=== PATIENT | male | born 1990 | race Caucasian/White ===

== ENCOUNTER 2020-01-19 14:16 | Emergency (ER) | payer OTHER ==
[2020-01-19 14:23] VITALS: BP 150/92
--- NOTE | 2020-01-19 14:38 | ED Physician Documentation ---
PD HPI UPPER EXT INJURY - Stated complaint Stated Complaint: R HAND LAC - Chief complaint Chief Complaint: Laceration - History obtained from History obtained from: Patient - History of Present Illness Location: Right, Finger (dorsal MCP of index finger) Type of injury: Laceration (madelaine was cleaning gutters and cut his hand on edge of sheet metal of the gutter. No numbness nor weakness.) Where injury occurred: Home Timing - onset: Today Timing - details: Abrupt onset (bled briskly initially. No numbness nor weakness of the finger.) Improved by: Rest Worsened by: Palpating. No: Moving Associated symptoms: No: Weakness, Numbness Review of Systems Neurologic: denies: Focal weakness, Numbness PD PAST MEDICAL HISTORY - Past Medical History Past Medical History: No - Allergies Allergies/Adverse Reactions: Allergies Allergy/AdvReac Type Severity Reaction Status Date / Time No Known Drug Allergies Allergy Verified 01/19/20 14:20 PD ED PE NORMAL - Vitals Vital signs reviewed: Yes - General General: Alert and oriented X 3, No acute distress, Well developed/nourished - Derm Derm: Normal color, Warm and dry - Extremities Extremities: Other (right index finger dorsal proximal MCP area with 1 cm laceration without FB nor active bleeding. Through skin only and does not involved deep structures. Strong extension of finger against resistance. It does open though with finger flexion and slight bleeding with that. So better with sutures. ) - Neuro Neuro: No motor deficit, No sensory deficit Results - Vitals Vitals: Vital Signs - 24 hr 01/19/20 14:20 Temperature 36.5 C Heart Rate 79 Respiratory 16 Rate Blood Pressure 150/92 H O2 Saturation 97 Oxygen O2 Source Room air Procedures - Laceration (location) right index finger dorsal MCP Length in cm: 1 Wound type: Linear, Into subcut fat, Clean Neurovascular status: Sensory intact, Motor intact, Vascular intact Tendon involvement: Tendon intact Anesthesia: Lidocaine 2% with epi Wound Preparation: Wound explored, To the base. No: FB identified Skin layer closure: Nylon, Interrupted, Size #-0 - enter number (4), Sutures - enter # (5) Other: Patient tolerated well, No complications, Neurovascular intact, Dressing applied, Tetanus UTD Complexity: Simple Departure - Departure Disposition: 01 Home, Self Care Clinical Impression: Hand laceration Qualifiers: Encounter type: initial encounter Foreign body presence: without foreign body Laterality: right Qualified Code(s): S61.411A - Laceration without foreign body of right hand, initial encounter Condition: Stable Record reviewed to determine appropriate education?: Yes Instructions: ED Laceration Hand Follow-Up: Chio Perry MD [Primary Care Provider] - Comments: It is okay to wash and shower. Clean off the wound twice a day with soap and water, or peroxide and water. Apply some antibiotic ointment to it to keep it moist. Also to watch for signs of infection such as purulence, redness or increasing pain. Return to your primary care or the ER at the specified time for suture removal. Suture removal 8 to 10 days. Tylenol ibuprofen if needed for pains. Discharge Date/Time: 01/19/20 15:34
== END 2020-01-19 15:34 | disposition home or self-care (01) ==
LOC: ED 14:16
DX: S61.210A Laceration without foreign body of right index finger without damage to nail, initial encounter (principal); W26.8XXA Contact with other sharp object(s), not elsewhere classified, initial encounter; Y93.E9 Activity, other interior property and clothing maintenance; Y92.007 Garden or yard of unspecified non-institutional (private) residence as the place of occurrence of the external cause
CPT/HCPCS: 12001; 99282

== ENCOUNTER 2021-05-15 16:17 | Emergency (ER) | payer OTHER ==
[2021-05-15 16:23] VITALS: BP 160/98
[2021-05-15] MEDS ORDERED: BUFFERED LIDOCAINE 10 ML SYRINGE SUBQ STA (16:29)
--- NOTE | 2021-05-15 16:29 | ED Physician Documentation ---
PD HPI UPPER EXT INJURY - Stated complaint Stated Complaint: LT INDEX FINGER LAC - Chief complaint Chief Complaint: Laceration - History obtained from History obtained from: Patient (30-year-old gentleman who is up-to-date on tetanus lacerated the dorsum of the left, nondominant index finger with an angle grinder set up operator external while working at home just prior to arrival.) Review of Systems Constitutional: reports: Reviewed and negative Eyes: reports: Reviewed and negative Ears: reports: Reviewed and negative Nose: reports: Reviewed and negative PD PAST MEDICAL HISTORY - Past Medical History Cardiovascular: None Respiratory: None Neuro: None Endocrine/Autoimmune: None GI: None : None HEENT: None Psych: None Musculoskeletal: None Derm: None - Past Surgical History Past Surgical History: Yes - Present Medications Home Medications: Ambulatory Orders Medication Instructions Recorded Confirmed Fluticasone [Flonase] 1 sprays CARMELINA DAILY 05/15/21 05/15/21 - Allergies Allergies/Adverse Reactions: Allergies Allergy/AdvReac Type Severity Reaction Status Date / Time No Known Drug Allergies Allergy Verified 05/15/21 16:20 - Social History Does the pt smoke?: No Smoking Status: Never smoker Does the pt drink ETOH?: No Does the pt have substance abuse?: No - Immunizations Immunizations are current?: Yes PD ED PE NORMAL - Vitals Vital signs reviewed: Yes - General General: Alert and oriented X 3, No acute distress - Extremities Extremities: Other (There is a 1 cm longitudinal laceration on the dorsum of the left index finger at the level of the PIP. Tendon is exposed but not obviously lacerated.) - Neuro Neuro: Alert and oriented X 3, Normal speech - Psych Psych: Normal mood, Normal affect Results - Vitals Vitals: Vital Signs - 24 hr 05/15/21 16:21 Temperature 36.4 C L Heart Rate 83 Respiratory 16 Rate Blood Pressure 160/98 H O2 Saturation 98 Oxygen O2 Source Room air Procedures - Laceration (location) 2nd L finger Length in cm: 1 Wound type: Linear, Into subcut fat Anesthesia: Lidocaine 1%, With bicarb Wound preparation: Irrigated copiously NS, Debrided moderately (grit from the grinder set up operator external scrubbed) Skin layer closure: Nylon, Interrupted, Size #-0 - enter number (4-0), Sutures - enter # (2) Other: Patient tolerated well, No complications, Neurovascular intact, Tetanus UTD Departure - Departure Disposition: Home, Self Care Clinical Impression: Laceration Condition: Good Record reviewed to determine appropriate education?: Yes Instructions: ED Laceration Hand Comments: Come back for any signs of infection which would include: Redness, swelling, drainage, increased pain, or fevers. You can wash it soap and water. Keep it covered and moist with bacitracin ointment which is available over the counter; avoid neosporin. Follow-up with your physician in About 14 days for suture removal.
== END 2021-05-15 16:47 | disposition home or self-care (01) ==
LOC: ED 16:17
DX: S61.211A Laceration without foreign body of left index finger without damage to nail, initial encounter (principal); W29.8XXA Contact with other powered hand tools and household machinery, initial encounter; Y93.H3 Activity, building and construction; Y92.008 Other place in unspecified non-institutional (private) residence as the place of occurrence of the external cause
CPT/HCPCS: 12001; 99281; 99282

== ENCOUNTER 2023-08-22 06:55 | Outpatient (CLI) | payer OTHER ==
--- NOTE | 2023-08-22 14:57 | MRI Report ---
PROCEDURE: LOWER LEG (TIB-FIB) WO - LT INDICATIONS: PAIN IN LIMB TECHNIQUE: Noncontrast coronal and sagittal T1 spin echo and STIR; axial T1 spin echo and T2 fast spin echo with fat saturation through the left lower leg. COMPARISON: None. FINDINGS: Image quality: Excellent. Bones: There is mild edema involving posterior medial aspect of distal tibial shaft with anterior med ial cortical thickening, mild periosteal reaction along anterior and medial cortex of distal tibial s haft at this level. No discrete intraosseous lesion. No gross cortical disruption. No fracture or dis location. Soft tissues: The scanned muscles demonstrate normal overall bulk and internal signal. Mild soft tis ana edema along anterior medial aspect of distal tibial shaft is seen. No discrete soft tissue mass o r drainable fluid collection. IMPRESSION: 1. Finding is consistent with moderate grade tibial stress injury involving anterior medial cortex of distal tibial shaft. 2. No fracture or dislocation. No suspicious bony lesions. 3. Mild soft tissue swelling and edema adjacent to anterior and medial cortex of distal tibial shaft. No discrete drainable fluid collection. No soft tissue mass. 4. No lower leg muscle signal. Reviewed by: Kosta Deleon MD on 08/22/2023 2:55 PM PST Approved by: Kosta Deleon MD on 08/22/2023 2:55 PM PST Station ID: [id number]
== END 2023-08-22 06:56 | disposition home or self-care (01) ==
LOC: DI 06:55
DX: R93.6 Abnormal findings on diagnostic imaging of limbs (principal); R93.89 Abnormal findings on diagnostic imaging of other specified body structures